=== PATIENT | female | born 1985 | race Hispanic/Latino ===

== ENCOUNTER → 2018-09-04 | Day surgery (SDC) | payer BC ==
[~2018-09-04] MED LIST: FENTANYL CITRATE/PF 100MCG/2 ML INJ IV ONE; HYOSCYAMINE SULFATE 0.5 MG/ML INJ IV ONE; LIDOCAINE HCL 2% LOCAL INJ 5 ML SDV VIAL INJ ONE; MIDAZOLAM HCL 2 MG/2 ML VIAL INJ ONE; PROPOFOL IV EMULSION 10 MG/ML 50 ML VIAL IV ONE; TYLENOL
[2018-09-04 16:00] VITALS: BP 112/70
--- NOTE | 2018-09-04 16:09 | Operative Report ---
DATE OF PROCEDURE: September 04, 2018 REFERRING PHYSICIAN: Dr. Eun White PROCEDURE PERFORMED: Colonoscopy with polypectomy. INDICATIONS FOR COLONOSCOPY: Rectal bleeding. MEDICATION: Patient was done under MAC. Please see anesthesiologist's note. PROCEDURE: With the patient in the left lateral decubitus position, the flexible fiberoptic Olympus colonoscope was inserted into the rectum with ease and advanced all the way to the cecum. It was then withdrawn slowly. Mucosa overlying the cecum, ascending colon, transverse colon, descending colon appeared to be within normal limits. One polyp was hot biopsied from the sigmoid, and 1 polyp was hot biopsied from the rectum. The scope was then retroflexed into the distal rectum, and small internal hemorrhoids were noted, none of which was actively bleeding. The scope was then straightened out. It was subsequently withdrawn. An ulcerated external hemorrhoid was noted on the way out. The patient tolerated the procedure well. IMPRESSION 1. Sigmoid colon polyp, hot biopsied. 2. Rectal polyp, hot biopsied. 3. Internal hemorrhoids. 4. Ulcerated external hemorrhoid. PLAN: Follow up histology. Anucort HC suppositories b.i.d. times 10 days, then p.r.n. If the patient continues to bleed, will refer to Dr. Eugenio Solis for hemorrhoidectomy. Patient might benefit from a followup colonoscopy in 5 years. ESTELLA LLAMAS MD Job#: [id number] cc:EUN WHITE M.D.
== END | disposition home or self-care (01) ==
LOC: OR 12:16
PROVIDERS: ATTEND Internal Medicine Gastroenterology
DX: K62.5 Hemorrhage of anus and rectum (principal); K63.5 Polyp of colon; K62.1 Rectal polyp; K64.8 Other hemorrhoids; R53.83 Other fatigue; F41.9 Anxiety disorder, unspecified; Z88.0 Allergy status to penicillin; Z68.30 Body mass index [BMI] 30.0-30.9, adult
CPT/HCPCS: 45384; 81025; J1980; J2001; J2250

== ENCOUNTER → 2018-09-10 | Day surgery (SDC) | payer BC ==
[2018-09-09 16:35] LABS: BASOPHILS % 0.5 % (0.0-1.0); EOSINOPHILS # (AUTO) 0.2 (0.0-0.4); EOSINOPHILS % 1.8 % (0.0-6.0); HEMATOCRIT 38.2 % (34.2-44.1); HEMOGLOBIN 13.2 g/dL (12.0-16.0); LYMPHOCYTES % 33.8 % (18.0-39.1); MEAN CORPUSCULAR HEMOGLOBIN 30.7 pg (28-32); MEAN CORPUSCULAR HGB CONC 34.6 g/dL (31-35); MEAN CORPUSCULAR VOLUME 88.8 fL (81-99); MONOCYTES # (AUTO) 0.7 (0.2-0.8); NEUTROPHILS # (AUTO) 4.9 (2.1-6.9); NEUTROPHILS % 55.7 % (38.7-80.0); PLATELET COUNT 283 x10e3/uL (140-360); RED CELL DISTRIBUTION WIDTH 12.1 % (11.7-14.4)
[~2018-09-10] MED LIST changes: +BUPIVACAINE 0.25%/EPI 30ML SDV INJ ONE; +DEXAMETHASONE SOD PHOS INJ 4 MG/ML VIAL IV ONE; -FENTANYL CITRATE/PF 100MCG/2 ML INJ IV ONE; +FENTANYL CITRATE/PF 100MCG/2 ML INJ ONE; +GELATIN SPONGE 12-7MM ONE; +HYDROCODONE/APAP 7.5MG-325MG 1 EA TAB ONE; -HYOSCYAMINE SULFATE 0.5 MG/ML INJ IV ONE; +LIDOCAINE HCL 1% LOCAL INJ 20 ML VIAL ONE; +LIDOCAINE HCL 2% 30 ML TUBE ONE; -MIDAZOLAM HCL 2 MG/2 ML VIAL INJ ONE; +MIDAZOLAM HCL 2 MG/2 ML VIAL ONE; +ONDANSETRON HCL INJ 2 MG/ML VIAL IV ONE; +PROPOFOL IV EMULSION 10 MG/ML 20 ML VIAL IV ONE; -PROPOFOL IV EMULSION 10 MG/ML 50 ML VIAL IV ONE; +SEVOFLURANE INHAL SOLN 250 ML PEN BTL INH ONE
--- NOTE | 2018-09-10 13:52 | Operative Report ---
DATE OF PROCEDURE: September 10, 2018 PREOPERATIVE DIAGNOSIS: Thrombosed ulcerated hemorrhoids. POSTOPERATIVE DIAGNOSIS: Thrombosed ulcerated hemorrhoids. OPERATION PERFORMED: Hemorrhoidectomy. ANESTHESIA: General. COMPLICATIONS: None. ESTIMATED BLOOD LOSS: Minimal. DESCRIPTION OF PROCEDURE: With the patient lying in bed in the lithotomy position under good general anesthesia, the perineum was prepped with Betadine solution and draped in the usual manner. Patient had large ulcerated hemorrhoids on the left side with prolapsing. The whole area was then infiltrated with 0.25% Marcaine with epinephrine. An elliptical incision was then made to excise all the necrotic tissue and all the clots were then slowly and carefully resected in a submucous way until clots were removed. Hemostasis was then ascertained. A Gelfoam pack was then placed. A dressing was applied. The sponge, lap and needle count was correct. The patient tolerated the procedure well and returned to the recovery room in stable condition. Job#: [id number]
[2018-09-10 14:08] VITALS: BP 100/57
== END | disposition home or self-care (01) ==
LOC: OR 10:28
PROVIDERS: ATTEND Surgery
DX: K64.5 Perianal venous thrombosis (principal); Z01.812 Encounter for preprocedural laboratory examination; Z88.0 Allergy status to penicillin
CPT/HCPCS: 36415; 46320; 81025; 85025; J1100; J2001 ×2; J2250; J2405; J2704